=== PATIENT | male | born 1965 | race Caucasian/White ===

== ENCOUNTER 2016-10-26 08:29 | Observation (INO) ==
[2016-10-26 09:25] LABS: Basophils # 0.1 10*3/uL (0.0-0.2); Eosinophils # 0.2 10*3/uL (0.0-0.87); Eosinophils % 3.9 % (0.00-10.9); Hematocrit 41.1 VOL% (42.0-52.0); Hemoglobin 14.2 GM/DL (14.0-18.0); Immature Granulocytes % 0.8 %; Immature Granulocytes Absolute 0.04 #; Lymphocytes # 1.8 10*3/uL (1.4-4.0); Lymphocytes % 33.9 % (21.2-54.2); Mean Corpuscular HGB Conc 34.5 GM/DL (32-36); Mean Corpuscular Hemoglobin 30 PG (27-34); Mean Corpuscular Volume 86.3 FL (87-102); Mean Platelet Volume 9.5 FL (9.6-12.0); Monocytes # 0.6 10*3/uL (0.11-0.8); Monocytes % 11.4 % (1.7-12.7); Neutrophils # 2.5 10*3/uL (1.4-7.4); Platelet Count 198 T/CUMM (130-400); Red Blood Count 4.76 MC/CUMM (3.8-5.5); Red Cell Distribution Width 12.1 % (9.3-17.3); White Blood Count 5.2 T/CUMM (4-12)
--- NOTE | 2016-10-26 09:26 | Emergency Department Note ---
ILuz Brittany, am scribing for, and in the presence of, Derrick Guallpa MD 09: 20. Saloni Harvey James D, MD, personally performed the services described in this documentation, ascribed by Feli Escobar in my presence, and it is both accurate and complete 926 . Arrival - Arrival Chief Complaint: Neuro Stated Complaint: unsure,anxiety ED Nursing Triage Note: Pt presents to triage via wheelchair with friend stating pt woke up this morning confused and is unable to remember anything. No deficits noted in triage. Pt is AAOX3. Pt states he does have HX of TIA and HTN. Mode of Arrival: Wheelchair Limitations: No Limitations Source: Patient, Family Time Seen by Provider: 10/26/16 09:02 - History of Present Illness HPI Narrative: This is a 50 y/o white male,who presents to the ED with c/o confusion which started at 0800 this morning. Per pt, "Something is not right." He is able to remember anything, per family. He denies any PALACIOS or weakness or numbness to one side. He reports he does remember taking 2 Zyrtec last night instead of the regular one. Pt states he had two cups of coffee this morning. He reports he had a hot feeling come over him. Pt has had a TIA 4 years ago, and states these Sx feel like when he had the TIA. Pt has no other complaints/pain in the ED at this time. Pt has a PMHx of HTN and TIA. Pt denies a surgical Hx. Pt denies a family medical Hx. Pt denies a social Hx. Onset (ago): hour(s) (Started at 0800 this morning) Consistency: constant Severity: moderate Allergies/Adverse Reactions: Allergies Allergy/AdvReac Type Severity Reaction Status Date / Time No Known Allergies Allergy Unverified 10/26/16 08:44 Home Medications: Home Medications Medication Instructions Recorded Confirmed Type Lisinopril 10 mg PO DAILY 10/26/16 10/26/16 History Potassium Citrate [Urocit K] 10 meq PO BID 10/26/16 10/26/16 History Propranolol Tab [Inderal Tab] 20 mg PO BID 10/26/16 10/26/16 History amLODIPine [Norvasc] 10 mg PO DAILY 10/26/16 10/26/16 History Medical,Surgical,& Family Hx - Medical History Cardio: History of: Hypertension Neurology: History of: TIA - Social History Smoking Status: Never smoker Frequency of Alcohol Use: None Type of Drug Use: None Exam Vital Signs: Vital Signs Temperature 97.9 F 10/26/16 08:45 Pulse Rate 60 10/26/16 10:25 Respiratory Rate 20 10/26/16 10:25 Blood Pressure 127/95 10/26/16 10:25 O2 Sat by Pulse Oximetry 99 10/26/16 10:25 GENERAL: This is a well-nourished well-developed white male in no apparent distress. VITAL SIGNS: Reviewed HEENT: Head is atraumatic and normocephalic. Pupils are equal round react to light. Extraocular movements are intact. Oropharynx is benign with moist mucous membranes. NECK: Neck is soft and supple without tenderness. There are no masses. There is no lymphadenopathy. LUNGS: Lungs are clear to auscultation. Chest rises symmetrically. There is no chest wall tenderness. CV: Heart is regular rate and rhythm without murmurs rubs or gallops. ABDOMEN: Abdomen is soft, nontender to palpation. There are no abdominal abnormal masses palpated. There is no organomegaly. Bowel sounds are present and active. SKIN: Skin is warm and dry. No rash. EXTREMITIES: Patient has full range of motion without tenderness. There is no pedal edema. NEUROLOGIC: Awake alert and oriented 4 per Cranial nerves II through XII are intact. Motor is 5 over 5 in all extremities bilaterally. Course - Consultations Consultation #1: Discussed with hospitalist. Patient will be seen in the emergency department Time: 11:01 Results - Labs CBC & BMP: 10/26/16 09:13 10/26/16 09:13 Disposition Clinical Impression: Altered mental status Case discussed with: patient, patient's family
--- NOTE | 2016-10-26 09:40 | XRay Report ---
Portable chest Date: 10/26/2016 Clinical history: Alteration of consciousness Comparison: 06/08/2013 Technique: Portable AP sitting chest Findings: The heart is borderline in size. The lungs are clear with unremarkable mediastinum and osseous structures. Impression: No acute cardiopulmonary pathology identified. PROCEDURE INTERPRETED AT [facility] DEPARTMENT OF RADIOLOGY Final Report Signed by: Dr. Jody Marin
--- NOTE | 2016-10-26 09:42 | CT Report ---
Referring physician: Derrick Guallpa Exam: CT brain without contrast Date: 10/26/2016 Comparison: 10/29/2013 Reason: Alteration of consciousness Technique: Axial images of the head were obtained without the use of contrast. Total DLP was 1073.1 a mGy*cm. Findings: No hydrocephalus or midline shift is present. There is no evidence of an acute infarction, recent intracranial hemorrhage or abnormal mass effect. The osseous structures appear intact. The mastoid air cells are clear. Persistent retention cyst/polyps in the sphenoid sinuses with the largest finding measuring 10 mm on the left. Incomplete evaluation of the paranasal sinuses. Impression: No acute intracranial abnormality is identified. Sphenoid sinus retention cysts/polyps. The CT exam was performed using one or more of the following dose reduction techniques: Automated exposure control and adjustment of the mA and/or kV according to patient size. PROCEDURE INTERPRETED AT [facility] DEPARTMENT OF RADIOLOGY Final Report Signed by: Dr. Jody Marin
[2016-10-26 09:49] LABS: Apearance,Urine CLEAR (Clear); Bilirubin,Urine Negative (Negative); Blood, Urine Negative (Negative); Glucose,Urine (UA) Negative (Negative); Ketones,Urine Negative (Negative); Mucus,Urine Occasional /LPF (Occasional); Nitrite,Urine Negative (Negative); Protein,Urine Negative; RBC,Urine 1 /HPF (0-4); Squamous Epithelial Cell,Urine Occasional /HPF (0-10); Urine Color Yellow (Yellow); Urine Specific Gravity 1.011 (1.001-1.035); Urine Urobilinogen < 2.0 EU/DL (0.2-1.0); WBC,Urine <1 /HPF (0-6)
[2016-10-26 09:52] LABS: Bilirubin,Total 0.4 MG/DL (0.2-1.0); Calcium 8.9 MG/DL (8.5-10.1); Osmolality,Calculated 284.1 MOS/KG (273-304); Potassium 4.2 MMOL/L (3.5-5.1); Total Protein 7.6 G/DL (6.4-8.3)
[2016-10-26 09:56] LABS: Barbiturates Screen,Urine Negative (Negative); Benzodiazepines Screen,Urine Negative (Negative); Cannabinoid Screen,Urine Negative (Negative); Opiate Screen,Urine Negative (Negative); Phencyclidine Screen,Urine Negative (Negative)
[2016-10-26] MEDS ORDERED: ZALEPLON 5 MG CAPSULE PO PRN (12:54)
[2016-10-26] MEDS ORDERED: ACETAMINOPHEN 325 MG TABLET PO PRN (12:54)
[2016-10-26] MEDS ORDERED: MORPHINE 2 MG/1 ML SYRINGE IV PRN (12:54)
[2016-10-26] MEDS ORDERED: LACTULOSE 20 GM/30 ML UDCUP PO PRN (12:54)
[2016-10-26] MEDS ORDERED: ONDANSETRON 4 MG/2 ML VIAL IV PRN (12:54)
[2016-10-26 13:47] LABS: Risk Ratio 3.96; VLDL CHOLESTEROL 31.4 MG/DL
[2016-10-26 13:49] LABS: Magnesium 2.1 MG/DL (1.8-2.4); Thyroid Stimulating Hormone 1.72 uIU/ml (0.358-3.74)
--- NOTE | 2016-10-26 14:33 | Hospitalist History & Physical ---
Assessment and Plan - Time spent with patient Time spent with patient: Greater than 30 minutes (1) Altered mental status Status: Acute Assessment and plan: admit to med surg as monitored pt MR brain, carotid dopplers, lipid panel consult neurology monitor BP resume home meds continue propanolol BID, take BID not once a day start on Celexa for anxiety DVT prophylaxis PRN meds routine labs in AM further plan and addendum to follow per Dr. Orozco Current Visit: Yes History of Present Illness Chief complaint: confusion History of present illness: Mr. Corona is a 50 year old male who presents to the ER today after confusion this morning. He states that he was fine yesterday, no recent illness or complaints. This morning when he woke up he says that he felt "foggy" or confused. He remembers getting ready and going to the [employer] where he works but says that everything felt "confused" and like something was wrong. He said he felt like he was getting hot all over and he had some hand tremors. He denied palpitations, denied nausea, denied chest pain or shortness of breath. He drove himself to the hospital. He called his on the way here and she states he did not have any slurred speech and seemed oriented to her. He is oriented at present. No neuro deficits and full ROM with equal strengths. He states he had something similar to this about four years ago and he was told it could have been a TIA. He is awake and alert, able to provide me with his complete history. He also tells me that he has not been sleeping well at all, and often having nightmares several times a night for about a week. Pt is currently taking propanolol, he tells me for an essential tremor. He has been on this for almost twenty years, although he says he often only takes it once a day instead of BID. 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 Pt tells me he is tired at present. Several indicators point to anxiety and stress in this pt. His complaint of confusion is strictly subjective and presently resolved. PMH of HTN and kidney stones. PSH denies. He does not smoke or drink. At present he denies chest pain, shortness of breath, fever, chills, headache, blurry vision, abdominal pain, n/v/d, dysuria or edema. Home Medications Medication Instructions Recorded Confirmed Type Lisinopril 10 mg PO DAILY 10/26/16 10/26/16 History Potassium Citrate [Urocit K] 10 meq PO BID 10/26/16 10/26/16 History Propranolol Tab [Inderal Tab] 20 mg PO BID 10/26/16 10/26/16 History amLODIPine [Norvasc] 10 mg PO DAILY 10/26/16 10/26/16 History Allergies Allergy/AdvReac Type Severity Reaction Status Date / Time No Known Allergies Allergy Unverified 10/26/16 08:44 Medical,Surgical,& Family Hx - Medical History Cardio: History of: Hypertension Neurology: History of: TIA - Social History Smoking Status: Never smoker Frequency of Alcohol Use: None Type of Drug Use: None 12 point system: reviewed and no additional remarkable complaints except as stated Exam - Constitutional Vitals: Period Temp Pulse Resp BP Sys/Liu Pulse Ox Last 24 Hr 55-60 16-20 119-130/71-93 98-98 General appearance: no acute distress - Head Head exam: Present: normal inspection, normocephalic - Eye Eye exam: Present: EOMI. Absent: scleral icterus Pupils: Present: ROXANNE, normal accommodation - ENT ENT exam: Present: normal exam, normal oropharynx - Neck Neck exam: Present: normal inspection. Absent: lymphadenopathy - Respiratory Respiratory exam: Present: clear to auscultation bilaterally. Absent: wheezes - Cardiovascular Cardiovascular exam: Present: regular rate and rhythm. Absent: tachycardia - GI/Abdominal GI/Abdominal exam: Present: normal bowel sounds, soft. Absent: tenderness - Extremities Exam Extremities exam: Present: normal inspection, full ROM. Absent: edema - Back Exam Back exam: Present: normal inspection. Absent: muscle spasm - Neurological Exam Neurological exam: Present: alert, oriented X3 - Psychiatric Psychiatric exam: Present: normal affect, normal mood - Skin Skin exam: Present: normal color, warm, dry Results - Labs CBC & BMP: 10/26/16 09:13 10/26/16 09:13 Lab Results: I have reviewed the past 24 hour labs Quality Measures - VTE Contraindication to Pharmacological VTE Prophylaxis: Already on Theraputic Agent , No Prophylaxis Needed - Stroke Onset of Symptoms Date: 10/26/16 Symptom Onset Unknown: Yes
[2016-10-26] MEDS: SODIUM CHLORIDE 0.9% 1,000 ML IV SCH (15:55)
--- NOTE | 2016-10-26 17:30 | Magnetic Resonance Report ---
History: Severe confusion with some memory loss. History of TIA Date: 10/26/2016 Study: MRI brain without contrast Comparison exam: CT head without contrast 10/26/2016. MRI brain without contrast October 30, 2013 The brain was imaged in 3 planes on the 1.2 Arlene open magnet without IV contrast, to include diffusion, T2, FLAIR, gradient echo, and T1-weighted sequences. The ventricles are midline in position without evidence of hydrocephalus. There is no Chiari I malformation. There is no gross pituitary mass. There is no evidence of acute ischemia on the diffusion sequence. There is no mass or parenchymal hemorrhage. There is no extra-axial hematoma. There is a normal flow void in the superior sagittal sinus. There is no gross abnormality in the [place] area. There is some mild polypoid mucosal thickening in the left maxillary sinus and bilateral sphenoid sinuses. Impression: No acute intracranial process. Sinus disease which may be chronic or allergic PROCEDURE INTERPRETED AT [facility] DEPARTMENT OF RADIOLOGY Final Report Signed by: Dr. [place]
[2016-10-26] MEDS: POTASSIUM CITRATE 10 MEQ TABLET PO SCH (20:50)
[2016-10-26] MEDS: PROPRANOLOL 20 MG TABLET PO SCH (20:50)
[2016-10-26] MEDS ORDERED: CITALOPRAM 20 MG TABLET PO SCH (21:00)
[2016-10-27] MEDS: SODIUM CHLORIDE 0.9% 1,000 ML IV SCH ×2 (02:12→16:58)
[2016-10-27 06:08] LABS: Basophils % 0.8 % (0.0-0.8); Eosinophils # 0.2 10*3/uL (0.0-0.87); Eosinophils % 3.8 % (0.00-10.9); Hematocrit 37.8 VOL% (42.0-52.0); Hemoglobin 12.8 GM/DL (14.0-18.0); Immature Granulocytes % 0.6 %; Immature Granulocytes Absolute 0.03 #; Lymphocytes # 1.8 10*3/uL (1.4-4.0); Lymphocytes % 34.6 % (21.2-54.2); Mean Corpuscular HGB Conc 33.9 GM/DL (32-36); Mean Corpuscular Hemoglobin 30 PG (27-34); Mean Corpuscular Volume 87.1 FL (87-102); Mean Platelet Volume 9.9 FL (9.6-12.0); Monocytes # 0.5 10*3/uL (0.11-0.8); Monocytes % 10.3 % (1.7-12.7); Neutrophils # 2.6 10*3/uL (1.4-7.4); Neutrophils % 49.9 % (38.7-73.9); Platelet Count 163 T/CUMM (130-400); Red Blood Count 4.34 MC/CUMM (3.8-5.5); Red Cell Distribution Width 12.4 % (9.3-17.3); White Blood Count 5.3 T/CUMM (4-12)
[2016-10-27 06:40] LABS: Albumin 3.3 G/DL (3.4-5.0); Calcium 8.5 MG/DL (8.5-10.1); Osmolality,Calculated 291.6 MOS/KG (273-304); Potassium 4.4 MMOL/L (3.5-5.1); Total Protein 6.2 G/DL (6.4-8.3)
[2016-10-27] MEDS: PROPRANOLOL 20 MG TABLET PO SCH (08:06)
[2016-10-27] MEDS: POTASSIUM CITRATE 10 MEQ TABLET PO SCH (08:07)
[2016-10-27] MEDS ORDERED: LISINOPRIL 10 MG TABLET PO SCH (09:00)
[2016-10-27] MEDS ORDERED: amLODIPine 10 MG TABLET PO SCH (09:00)
--- NOTE | 2016-10-27 14:49 | Neurology Consult Note ---
History of Present Illness History of present illness: Mr. Corona is a 50 year old male who presents to the ER today after confusion this morning. He states that he was fine yesterday, no recent illness or complaints. This morning when he woke up he says that he felt "foggy" or confused. He remembers getting ready and going to the [employer] where he works but says that everything felt "confused" and like something was wrong. He said he felt like he was getting hot all over and he had some hand tremors. He denied palpitations, denied nausea, denied chest pain or shortness of breath. He drove himself to the hospital. He called his on the way here and she states he did not have any slurred speech and seemed oriented to her. He is back to normal now. He states he had something similar to this about 3 years ago and he was told it could have been a TIA. He is awake and alert, able to provide me with his complete history. He also tells me that he has not been sleeping well at all, and often having nightmares several times a night for about a week. Pt is currently taking propanolol, he tells me for an essential tremor. He has been on this for almost twenty years, although he says he often only takes it once a day instead of BID. 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 Patient reported that he gets headaches quite often at least twice a week. They're mild and hurts in the back of the head and sometimes in the left side of the head. MRI of the brain revealed no acute abnormalities. He feels pressure type headaches. Home Medications Medication Instructions Recorded Confirmed Type Lisinopril 10 mg PO DAILY 10/26/16 10/27/16 History Potassium Citrate [Urocit K] 20 meq PO BID 10/26/16 10/27/16 History Propranolol Tab [Inderal Tab] 20 mg PO BID 10/26/16 10/27/16 History amLODIPine [Norvasc] 5 mg PO DAILY 10/26/16 10/27/16 History Aspirin [Ecotrin] 325 mg PO DAILY 10/27/16 10/27/16 History Allergies Allergy/AdvReac Type Severity Reaction Status Date / Time No Known Allergies Allergy Unverified 10/26/16 08:44 12 point system: reviewed and no additional remarkable complaints except as stated Medical,Surgical,& Family Hx - Medical History Cardio: History of: Hypertension Neurology: History of: TIA Genitourinary: History of: Kidney Stones Gastrointestinal: History of: GI Problems (troy fundiplication) - Surgical History Abdominal Surgeries: Surgical HX of: Cholecystectomy - Social History Smoking Status: Never smoker Frequency of Alcohol Use: None Type of Drug Use: None Exam - Constitutional Vitals: Period Temp Pulse Resp BP Sys/Liu Pulse Ox Last 24 Hr 97.4 F-98.3 F 56-66 16-19 110-143/68-91 94-99 Exam: GENERAL: Patient is in no acute distress. NECK: Neck is supple. There is no JVD. No carotid bruits present. No thyroid masses. CVS: First and second heart sounds are normal. There is no S3 present. Regular rate and rhythm. RESPIRATORY: Lungs are clear to auscultation without any rales or rhonchi. ABDOMEN: Soft and non-tender. Bowel sounds are present. There is no hepatosplenomegaly. EXT: There is no palpable edema. Peripheral pulses are present. Skin: No rashes Central Nervous system: General: Alert, awake and Oriented x 3 Speech: Fluent Comprehension: Intact and normal Facial expressions: Normal Cranial Nerves: CN1/Olfactory: Normal CN II/ Optic: Normal, Visual Schmitz unreliable CN III, and : ROXANNE & EOMI CN V: Normal & intact CN VII: face is symmetric CNVIII: Normal CN XI/X/XI/XII: Intact and Normal Motor: Bulk and Tone is normal. Strength in the right 5/5 Strength in the left 5/5 Sensory: Grossly intact for all the modalities of PP, LT and temp sense Reflexes: 1+ and symmetrical Cerebellar function: Normal finger to nose and heel to roberts testing. Gait: Normal heel to heel and toe to toe and tandem walk. Results - Labs CBC & BMP: 10/27/16 05:49 10/27/16 05:49 Assessment and Plan (1) Acute confusional state Status: Acute Assessment and plan: Differential would include TIA versus migraines. Start Celexa Start and continue aspirin a day Start and continue Elavil 25 mg by mouth at bedtime Follow-up in 2 weeks Signoff call when necessary Current Visit: Yes Specialty Discharge - Follow Up or Referrals Follow up with: Enrike Roberts MD [Physician] - 1 Month
--- NOTE | 2016-10-27 15:16 | Discharge Summary ---
Hospital Course - Hospital Course Hospital Course: Mr. Corona was admitted for evaluation of episode of confusion. This had resolved by admission. MRI of his brain was unremarkable. Carotid ultrasound was pending by discharge. He was seen by neurology and this was felt to be either a complex migraine versus TIA. Patient will be discharged home with Elavil, Celexa and Lipitor. He will follow-up with urology as an outpatient in 2 weeks. - Time spent with patient Time with patient DS: Greater than 30 minutes Specialty Discharge - Follow Up or Referrals Follow up with: Enrike Roberts MD [Physician] - 1 Month Discharge Plan - Discharge Data Disposition: Disch To Home/Self Care Condition at Discharge: Stable Discharge Diet: advance to your usual diet - Discharge Medications New Amitriptyline [Elavil] 25 mg PO BEDTIME #30 tablet Citalopram Hydrobromide [Celexa] 10 mg PO DAILY #30 tablet Atorvastatin [Lipitor] 10 mg PO BEDTIME #30 tablet Continue Potassium Citrate [Urocit K] 20 meq PO BID Propranolol Tab [Inderal Tab] 20 mg PO BID amLODIPine [Norvasc] 5 mg PO DAILY Lisinopril 10 mg PO DAILY Aspirin [Ecotrin] 325 mg PO DAILY - Follow Up or Referral Follow Up: Enrike Roberts MD [Physician] - 1 Month - Forms/Instructions Exam - Constitutional Vitals: Period Temp Pulse Resp BP Sys/Liu Pulse Ox Last 24 Hr 97.4 F-98.3 F 56-66 16-19 110-143/68-91 94-99 General appearance: normal weight, no acute distress - Head Head exam: Present: normal inspection, normocephalic, atraumatic - Eye Eye exam: Present: EOMI Pupils: Present: ROXANNE - ENT ENT exam: Present: normal exam - Neck Neck exam: Present: normal inspection - Respiratory Respiratory exam: Present: clear to auscultation bilaterally - Cardiovascular Cardiovascular exam: Present: regular rate and rhythm - GI/Abdominal GI/Abdominal exam: Present: normal bowel sounds - Extremities Exam Extremities exam: Present: normal inspection Discharge Results Procedures and tests throughout hospitalization: Pending Orders 10/26/16 12:54 US carotid duplex BI Routine Labs on day of discharge: Labs from last 24 hours 10/27/16 10/27/16 05:49 05:49 WBC 5.3 RBC 4.34 Hgb 12.8 L Hct 37.8 L MCV 87.1 MCH 30 MCHC 33.9 RDW 12.4 Plt Count 163 MPV 9.9 Neut % (Auto) 49.9 Lymph % (Auto) 34.6 Camp % (Auto) 10.3 Eos % (Auto) 3.8 Baso % (Auto) 0.8 Neut # (Auto) 2.6 Lymph # (Auto) 1.8 Camp # (Auto) 0.5 Eos # (Auto) 0.2 Baso # (Auto) 0.0 Immature Gran % 0.6 Nucleated RBC % 0.0 Immature Gran # 0.03 Nucleated RBCs # 0.00 Sodium 146 H Potassium 4.4 Chloride 111 H Carbon Dioxide 26 Anion Gap 13.4 BUN 17 Creatinine 0.90 GFR Calculation 117 BUN/Creatinine Ratio 18.00 Glucose 95 Calculated Osmolality 291.6 Calcium 8.5 Total Bilirubin 1.00 AST 17 ALT 24 Alkaline Phosphatase 52 Total Protein 6.2 L Albumin 3.3 L Globulin 2.9 Albumin/Globulin Ratio 1.1 DS: Provider Date of admission: 10/26/16 11:54 Primary care physician: . No PCP Attending physician on admission: Mable Orozco MD Consults: 10/26/16 12:54 Consult to Physician [CONS] Routine Comment: confusion Consulting Provider: Enrike Roberts Person Notified: trey Date Notified: 10/26/16 Time Notified: 14:44 10/26/16 13:14 Consult to Pharmacy [CONS] Routine Reason for Pharmacy Consult: Adjust Meds Renal Funct Discharging clinician: Mable Orozco MD
[2016-10-27 16:57] VITALS: BP 114/72
[2016-10-27] MEDS ORDERED: AMITRIPTYLINE 25 MG TABLET PO SCH (21:00)
[2016-10-28] MEDS ORDERED: ASPIRIN EC 81 MG TABLET PO SCH (09:00)
--- NOTE | 2016-11-02 15:15 | Ultrasound Report ---
Exam: US carotid duplex BI Date: 10/26/2016 12:54 PM Indication: History of TIA, severe confusion Technique: Duplex scan of the bilateral carotid arteries using B-mode/grayscale imaging and Doppler spectral analysis and color flow. Findings: Right Flow velocities centimeters per second Common carotid artery: 69 Proximal ICA: 48 Distal ICA: 58 External carotid artery: 90 Vertebral artery: 61 with antegrade flow ICA/CCA ratio: 0.8 Measurements in millimeters Distal ICA: 6.2 Left: Flow velocities centimeters per second Common carotid artery: 77 Proximal ICA: 40 Distal ICA: 61 External carotid artery: 89 Vertebral artery: 42 ICA/CCA ratio: 0.8 Measurements in millimeters Distal ICA: 5.9 No significant atherosclerotic plaque or luminal stenosis is evident within either internal carotid artery. Color flow is present in all visualized vessels with Doppler analysis. Impression: No significant atherosclerotic plaque or luminal stenosis within either internal carotid artery by ultrasound criteria. Today studies were performed utilizing indirect NASCET criteria The ultrasound images were stored and captured PROCEDURE INTERPRETED AT [facility] DEPARTMENT OF RADIOLOGY Final Report Signed by: Del Kilgore
== END 2016-10-27 16:57 | disposition home or self-care (01) ==
LOC: N.ED 08:29 → N.EDINP 08:29 → N.5E 14:19
PROVIDERS: ADMIT Internal Medicine; ATTEND Internal Medicine